=== PATIENT | female | born 1995 | race African-American/Black ===

== ENCOUNTER 2021-04-12 12:03 | Emergency (ER) | payer MEDICAID ==
[~2021-04-12] VITALS: Ht 167.6 cm; Wt 77.1 kg
[2021-04-12 12:04] VITALS: BP 125/67
--- NOTE | 2021-04-12 12:14 | NUR ---
PT AMB TO BED 7.
--- NOTE | 2021-04-12 12:14 | NUR ---
Patient ambulated to the restroom with a steady gait.
--- NOTE | 2021-04-12 12:15 | NUR ---
Patient is a 26 y/o female c/o pain to her incision site. Patient had approximately two weeks ago. Pain is intermittent, described as soreness, 5/10, radiates to LLQ of abdomen. Patient states that she saw OB who took off the initial bandage and noted clear drainage. Patient states that the drainage is now serosanguineous but no purulent drainage noted. Patiend denies CP, SOB, n/v/d, fever, chills. PMH: denies Rx: Ibuprofen PRN NKA
--- NOTE | 2021-04-12 12:45 | NUR ---
Lab at bedside for blood draw.
--- NOTE | 2021-04-12 12:48 | NUR ---
Dr. Sullivan is evaluating the patient at bedside.
[2021-04-12] MEDS ORDERED: NACL 0.9% 1,000 ML IV ONE (12:55)
[2021-04-12 12:59] LABS: BASOPHILS % (AUTO) 0.7 % (0.0-2.0); EOSINOPHILS # (AUTO) 0.5 K/uL (0-0.4); EOSINOPHILS % (AUTO) 7.6 % (0.0-4.0); HEMATOCRIT 32.1 % (36-48); LYMPHOCYTES % (AUTO) 16.1 % (20.5-51.1); MEAN CORPUSCULAR HEMOGLOBIN 23 pg (27-31); MEAN CORPUSCULAR HGB CONC 31 g/dL (33-37); MEAN CORPUSCULAR VOLUME 73.3 fL (80-94); MONOCYTES # (AUTO) 0.2 K/uL (0.8-1.0); MONOCYTES % (AUTO) 3.4 % (1.7-9.3); NEUTROPHILS # (AUTO) 4.6 K/uL (1.8-7.7); NEUTROPHILS % (AUTO) 72.2 % (42.2-75.2); PLATELET COUNT (AUTO) 677 K/uL (140-450); RED BLOOD CELL COUNT(AUTO) 4.38 MIL/uL (4.20-5.40); RED CELL DISTRIBUTION WIDTH 18.9 % (11.6-13.7); WHITE BLOOD COUNT (AUTO) 6.3 K/uL (4.8-10.8)
[2021-04-12 13:22] LABS: ALBUMIN 3.8 g/dL (3.4-5.0); ANION GAP 12.8 (8-16); CARBON DIOXIDE 28.4 mmol/L (21-32); CREATININE 0.9 mg/dL (0.6-1.3); POTASSIUM 4.2 mmol/L (3.5-5.1); TOTAL BILIRUBIN 0.4 mg/dL (0.0-1.0)
--- NOTE | 2021-04-12 13:37 | NUR ---
Patient taken to CT via gurney by assistant professor of radiology.
--- NOTE | 2021-04-12 13:47 | NUR ---
Patient returned from CT scan. RN reevaluating the patient at bedside.
--- NOTE | 2021-04-12 14:22 | NUR ---
Dr. Sullivan at the bedside re-evaluating patient.
[2021-04-12] MEDS ORDERED: CLIN-25 PO (14:28)
[2021-04-12 14:39] VITALS: BP 125/67
--- NOTE | 2021-04-12 14:40 | NUR ---
Patient discharged with v/s stable. Written and verbal after care instructions given and explained. Patient alert, oriented and verbalized understanding of instructions. Ambulatory with steady gait. All questions addressed prior to discharge. ID band removed. Patient advised to follow up with PMD. Rx of clindamycin hcl given. Patient educated on indication of medication including possible reaction and side effects. Opportunity to ask questions provided and answered.
== END 2021-04-12 14:40 | disposition home or self-care (01) ==
LOC: MED 12:03
DX: T88.9XXA Complication of surgical and medical care, unspecified, initial encounter (principal)
CPT/HCPCS: 36415; 74177; 80053; 81002; 83605; 83690; 85025; 87040; 96360; 99285; J7030; Q9967